=== PATIENT | female | born 1995 | race Caucasian/White ===

== ENCOUNTER 2023-05-07 08:06 | Day surgery (SDC) | payer OTHER ==
--- NOTE | 2023-05-04 15:25 | HP ---
PROCEDURE DATE: 05/07/2023 HISTORY OF PRESENT ILLNESS: 27 year-old with history of some nausea, vomiting, and diarrhea, worse with greasy food, and some right upper quadrant pains. US - No stones. HIDA - Ejection fraction 7%. PAST MEDICAL HISTORY: Hypertension. She had some stage III renal insufficiency. CURRENT MEDICATIONS: Lisinopril, ondansetron, esomeprazole, medroxyprogesterone, sertraline, vitamin D2, furosemide, albuterol HFA inhaler. ALLERGIES: BANANA CAUSES SOME THROAT PROBLEMS, LATEX, AND CATS. PAST SURGICAL HISTORY: Had kidney biopsy, had laser eye surgery in the past. FAMILY HISTORY: Hypertension, asthma, cancer, alcohol abuse, autism. SOCIAL HISTORY: No smoking or alcohol abuse. REVIEW OF SYSTEMS: 12 systems reviewed pertinent for as noted above multiple medical problems. Otherwise, no chest pain or palpitations. Other systems negative or noncontributory other than above and per preadmission questionnaire. PHYSICAL EXAMINATION: VITALS: Height 5' 9", BMI 29. GENERAL: No acute distress. HEENT: Sclerae nonicteric. NECK: No JVD. CHEST: Equal excursion. Nonlabored breathing. CVS: Regular rate and rhythm. ABDOMEN: Soft. Mild tenderness in right upper quadrant. EXTREMITIES: No cyanosis or edema. NEURO: Alert and oriented, moving extremities symmetrically. PSYCH: Appropriate mood and affect. SKIN: Dry. IMPRESSION: 1. EXACERBATION OF CHRONIC CHOLECYSTITIS, SYMPTOMATIC BILIARY DYSKINESIA. FEEL THE PATIENT WILL BENEFIT FROM CHOLECYSTECTOMY. Shown the risk sheet. Explained the risks in detail, but not limited to, bleeding; infection; risk of trocar injury or hernia; risk of bowel, bladder, or blood vessel injury; risk of bile leak, bile duct injury, or retained stone or sludge possibly requiring further procedures either open or endoscopic retrograde cholangiopancreatography; general risk of anesthesia, deep vein thrombosis, pulmonary embolism, or pneumonia; perioperative risks of aches, pains, bloating, constipation and/or loose stools possibly chronic in nature; possibility of no improvement in her pre-op symptoms possibly requiring further work-up or studies, endoscopies or other studies or referrals. Will proceed with laparoscopic cholecystectomy, possible open as an outpatient. Otherwise, continue medications for renal insufficiency, hypertension, and vitamin D deficiency.
[~2023-05-07 08:06] MED LIST: Lactated Ringers 1,000 ML IV ONE; Sensorcaine 0.25% 10 ML ONE
[2023-05-07] MEDS: Lactated Ringers 1,000 ML IV SCH (08:19)
[2023-05-07] MEDS: MEFOXIN 2 GM PREMIX** 2 GM/50 ML ML IV SCH (08:19)
[2023-05-07 08:27] LABS: HCG URINE TEST NEGATIVE (NEGATIVE)
[2023-05-07 08:52] VITALS: O2SAT 95
[2023-05-07] MEDS ORDERED: Versed 2 MG/2 ML Injection ONE (10:50)
[2023-05-07] MEDS ORDERED: TORAdol 30 mg Injection ONE ×2 (10:51→12:37)
[2023-05-07] MEDS ORDERED: Xylocaine-Mpf 2% 5 Ml Vial ONE (10:51)
[2023-05-07] MEDS ORDERED: Zofran 4 MG/2 ML VIAL ONE ×2 (10:51→12:42)
[2023-05-07] MEDS ORDERED: DEXMEDETOMIDINE 80 MCG/20ML-NS IV ONE (10:51)
[2023-05-07] MEDS ORDERED: Zemuron 100 MG/10 ML ONE (10:51)
[2023-05-07] MEDS ORDERED: Decadron 4 MG INJ ONE ×2 (10:51→11:19)
[2023-05-07] MEDS ORDERED: Quelicin Fliptop 200 MG/10 ML ONE (10:51)
[2023-05-07] MEDS ORDERED: DIPRIVAN 200 MG/20 ML IV ONE (10:51)
[2023-05-07] MEDS ORDERED: BRIDION 200MG/2ML IV ONE ×2 (10:51→11:50)
[2023-05-07] MEDS ORDERED: SUBLIMAZE 100 MCG/2 ML ONE ×2 (10:52→12:24)
[2023-05-07] MEDS ORDERED: OFIRMEV 100 ML IV ONE (10:58)
[2023-05-07] MEDS ORDERED: Pre-Attached Lta Kit TP ONE (10:58)
[2023-05-07] MEDS ORDERED: Reglan 10 MG/2 ML ONE (11:05)
[2023-05-07] MEDS ORDERED: NORCO 5/325 MG ONE (13:17)
[2023-05-07 13:18] VITALS: RESP 16
[2023-05-07] MEDS: NORCO 5/325 MG PO PRN (13:20)
[2023-05-07] MEDS ORDERED: MORPHINE SULFATE 4 MG INJ IV PRN (13:49)
[2023-05-07] MEDS ORDERED: ZOFRAN ODT 4 MG PO PRN (13:50)
[2023-05-07 13:51] VITALS: BP 138/95; PULSE 87; TEMP 97.6
--- NOTE | 2023-05-08 10:35 | OP ---
SURGERY DATE/TIME: 05/07/2023 1128 PREOPERATIVE DIAGNOSIS: Acute exacerbation of chronic cholecystitis, symptomatic biliary dyskinesia. POSTOPERATIVE DIAGNOSIS: Acute exacerbation of chronic cholecystitis, symptomatic biliary dyskinesia. PROCEDURE: Laparoscopic cholecystectomy. SURGEON: Dr. Nael Dalal M.D. ANESTHESIA: General. ESTIMATED BLOOD LOSS: Minimal. INDICATIONS: As noted above. Risks and benefits explained in detail but not limited to and consent obtained. DESCRIPTION OF PROCEDURE AND FINDINGS: The patient was taken to the operating room. General anesthesia induced. Abdomen prepped and draped in usual sterile fashion. After official time out and no disagreement with planned procedure, a transverse incision made in the supraumbilical area. Fascia grasped, pulled upward. Veress needle inserted and tested with saline. Pneumoperitoneum accomplished insufflating opening pressure of 0-15. An 11 mm bladeless port and camera were inserted without difficulty followed by two - 5 mm right upper quadrant ports and 5 mm epigastric port. The gallbladder is grasped retracted over the edge of the liver. It had some chronic inflammation. Dissected posterior, lateral to anterior fashion slowly and carefully the cystic duct and infundibular area slowly and carefully well skeletonized until the critical view was obtained both anteriorly and posteriorly. Once this is accomplished, the cystic duct and cystic artery were clipped x3 and divided in the usual fashion. The gallbladder is carefully dissected free from its dense attachments to the liver bed clipping additional oozing side branches off of the cystic vein, cystic artery as necessary directly on the gallbladder wall. Just prior to releasing from final attachments to the anterior edge of the liver, the liver bed re-inspected. Clips noted in place in the cystic duct and cystic artery stumps. No signs of any active bleeding or bile leakage. It was felt there is no benefit of drain placement. The gallbladder was released from its final attachments to anterior edge of the liver pulled up and out the supraumbilical port sites and passed off. The fascial defect was then closed with puncture closure device with #1 Vicryl. Liver bed re-inspected. Copious amount of irrigation accomplished lateral to the liver. Clips in place in cystic duct and cystic artery stumps. No signs of any active bleeding or bile leakage. It was felt there was no benefit in drain placement. Pneumoperitoneum decompressed after closing the 10/11 sites with puncture closure device with #1 Vicryl. The wound is irrigated out. Skin incision closed with 4-0 Vicryl. Steri-Strips and sterile dressing applied. The patient tolerated the procedure well. There were no immediate complications. 0.25% Marcaine local injected along the skin incision and fascial defects at the beginning of the procedure. There were no immediate complications. Findings discussed with the family out in the waiting area.
== END 2023-05-07 14:20 | disposition home or self-care (01) ==
LOC: SDC 08:06
PROVIDERS: ATTEND Surgery
DX: K81.1 Chronic cholecystitis (principal); K82.8 Other specified diseases of gallbladder
CPT/HCPCS: 81025; J0330; J0694; J1100; J1885; J2250; J2405; J2704; J3010; A9270-GY

== ENCOUNTER 2025-02-11 18:34 | Emergency (ER) | payer OTHER ==
[2025-02-11 19:52] VITALS: TEMP 97.5; O2SAT 99
--- NOTE | 2025-02-11 20:07 | ERPHSYRPT ---
- History of Present Illness Time Seen by Provider: 02/11/25 20:02 Source: patient Exam Limitations: no limitations Patient Subjective Stated Complaint: pt states that she woke up with cramping and burning with urination this morning Triage Nursing Assessment: pt ambulated into the er; pt is axo x4; c/o urinary burning; pt states 6/10 pain with urination; pt states cramping to pelvic region; active bowel sounds in all quads; pt states she is due for her depo shot and cramping could be due to that; skin PDW; no respiratory distress present; hypertensive Physician History: Patient is a 29-year-old female history of recurrent urinary tract infections hypertension asthma anxiety depression presents to our ED for evaluation of intermittent pelvic cramping and dysuria. Symptoms started today. No trauma no fever. No nausea vomiting or diaphoresis. Symptoms are mild to moderate in intensity. No specific worsening or improving factors. Patient rates her pain 6 out of 10. Patient otherwise feels well. She voices no other complaints or concerns at this time. Portions of this note were created with voice recognition technology. There may be grammatical, spelling, punctuation or sound alike errors Timing/Duration: today Severity: moderate Modifying Factors: Improves With: nothing Associated Symptoms: denies symptoms Allergies/Adverse Reactions: banana Allergy (Verified 02/11/25 19:37) coconut Allergy (Verified 02/11/25 19:37) kiwi Allergy (Verified 02/11/25 19:37) sesame seed Allergy (Verified 02/11/25 19:37) shellfish derived Allergy (Verified 02/11/25 19:37) strawberry Allergy (Verified 02/11/25 19:37) tree nut Allergy (Verified 02/11/25 19:37) Home Medications: Ergocalciferol (Vitamin D2) [Vitamin D2] 1 tab PO DAILY 04/16/23 [History] Esomeprazole Magnesium 40 mg PO DAILY 04/16/23 [History] Furosemide 20 mg [Lasix 20 mg] 20 mg PO DAILY 04/16/23 [History] Lisinopril 5 mg [Zestril 5 MG] 10 mg PO DAILY 04/16/23 [History] Sertraline HCl 50 mg [Zoloft 50 mg Tablet] 100 mg PO DAILY 04/16/23 [History] Prazosin HCl 1 mg PO HS 10/01/24 [History] hydroCHLOROthiazide [Hydrochlorothiazide] 12.5 mg PO DAILY 10/01/24 [History] Dapagliflozin Propanediol [Farxiga] 5 mg PO DAILY 02/11/25 [History] Fluticasone/Umeclidin/Vilanter [Trelegy Ellipta 200-62.5-25] 1 puff IH DAILY 02/11/25 [History] Magnesium Oxide 400 mg PO BID 02/11/25 [History] Medroxyprogesterone Acetate 150 mg IM Q90D 02/11/25 [History] Sodium Bicarbonate 650 mg PO BID 02/11/25 [History] Hx Tetanus, Diphtheria Vaccination/Date Given: Yes Hx Influenza Vaccination/Date Given: Yes Hx Pneumococcal Vaccination/Date Given: No Travel Risk - International Travel Have you traveled outside of the country in past 3 weeks: No - Emerging Infectious Disease Are you exhibiting symptoms associated with any current EIDs: No Symptoms: Abdominal Pain, Diarrhea - Review of Systems All Other Systems: Reviewed and Negative - Past Medical History Pertinent Past Medical History: Yes Neurological History: No Pertinent History ENT History: Other Cardiac History: Hypertension Respiratory History: Asthma Endocrine Medical History: No Pertinent History Musculoskeletal History: No Pertinent History GI Medical History: Gallbladder Disease History: No Pertinent History Psycho-Social History: Anxiety, Depression Female Reproductive Disorders: No Pertinent History Other Medical History: chronic kidney disease stage 3, retinal degeneration - Past Surgical History Past Surgical History: Yes Neuro Surgical History: No Pertinent History Cardiac: No Pertinent History Respiratory: No Pertinent History Gastrointestinal: No Pertinent History Genitourinary: No Pertinent History Musculoskeletal: No Pertinent History Female Surgical History: No Pertinent History Other Surgical History: laser eye surgery, kidney biopsy - Female History Hx Now: No - Social History Smoking Status: Never smoker Exposure to second hand smoke: Yes Drug Use: none - Social Determinants of Health Will the patient participate in the screening: Declined to provide - Nursing Vital Signs Nursing Vital Signs: Initial Vital Signs Temperature 97.5 F 02/11/25 19:34 Pulse Rate 94 H 02/11/25 19:34 Respiratory Rate 20 02/11/25 19:34 Blood Pressure 158/103 02/11/25 19:34 O2 Sat by Pulse Oximetry 99 02/11/25 19:34 Pain Scale Pain Intensity 5 - Physical Exam General Appearance: no apparent distress, alert Eye Exam: PERRL/EOMI, eyes nml inspection Ears, Nose, Throat Exam: normal ENT inspection Neck Exam: normal inspection, full range of motion Respiratory Exam: normal breath sounds, lungs clear, No respiratory distress Cardiovascular Exam: regular rate/rhythm, normal heart sounds, normal peripheral pulses Gastrointestinal/Abdomen Exam: soft, normal bowel sounds, No tenderness, No mass Back Exam: normal inspection, normal range of motion, No CVA tenderness, No vertebral tenderness Extremity Exam: normal inspection, normal range of motion, pelvis stable Neurologic Exam: alert, oriented x 3, cooperative, normal mood/affect, sensation nml, No motor deficits Skin Exam: normal color, warm, dry, No rash Lymphatic Exam: No adenopathy SpO2 Interpretation: normal SpO2: 99 O2 Delivery: Room Air - Course Nursing assessment & vital signs reviewed: Yes Ordered Tests: Active Orders 24 hr Category Date Time Status CULTURE,URINE Stat Lab 02/11/25 Ordered CULTURE,URINE Stat Lab 02/11/25 19:51 Received HCG QUALITATIVE, URINE Stat Lab 02/11/25 19:51 Completed UA W/RFX UR CULTURE Stat Lab 02/11/25 19:51 Completed Medication Summary Discontinued Medications Generic Name Dose Route Start Last Admin Trade Name Frankyq PRN Reason Stop Dose Admin Acetaminophen 975 mg 02/11/25 20:05 02/11/25 20:12 Acetaminophen 325 Mg Tablet PO 02/11/25 20:06 975 mg STAT ONE Administration Acetaminophen Confirm 02/11/25 20:11 Acetaminophen 325 Mg Tablet Administered 02/11/25 20:12 Dose 975 mg .ROUTE .STK-MED ONE Nitrofurantoin Macrocrystals 100 mg 02/11/25 20:34 Nitrofurantoin Macro 100 Mg Capsule PO 02/11/25 20:35 STAT ONE Lab/Rad Data: Laboratory Results 02/11/25 02/11/25 Range/Units 19:51 19:51 Urine Color Yellow (Yellow) Urine Appearance Clear (Clear) Urine pH 5.5 (4.6-8.0) Ur Specific Broadbent 1.010 (1.005-1.030) Urine Protein 100 A (Negative) Urine Glucose (UA) Negative (Negative) mg/dL Urine Ketones Negative (Negative) Urine Blood Negative (Negative) Urine Nitrite Negative (Negative) Urine Bilirubin Negative (Negative) Urine Urobilinogen 0.2 (0.2) mg/dL Ur Leukocyte Esterase Trace A (Negative) U Hyaline Cast (Auto) 3-5 A (0-2) /LPF Urine Microscopic RBC 0-2 (0-5) /HPF Urine Microscopic WBC 3-5 (0-5) /HPF Ur Epithelial Cells None Seen (None Seen) /HPF Urine Bacteria None Seen (None Seen) /HPF Urine Culture Reflexed YES (NO) Urine HCG, Qual NEGATIVE (NEGATIVE) - Progress Progress: improved Progress Note: Patient is a 29-year-old female history of recurrent urinary tract infections hypertension asthma anxiety depression presents to our ED for evaluation of intermittent pelvic cramping and dysuria. Symptoms started today. No trauma no fever. No nausea vomiting or diaphoresis. Physical exam nonremarkable. UA significant for proteinuria trace leukocyte esterase 3-5 WBC. The UA did not reflex to culture. I ordered a urine culture in light of patient's history and current complaint. Patient currently asymptomatic. We administered a dose of M acrobid. A prescription for the same forwarded to patient's pharmacy. Patient has a follow-up appointment with her family doctor scheduled for tomorrow. Patient resting comfortably. No complaints. Significant other at bedside. Patient states she is ready for discharge. Portions of this note were created with voice recognition technology. There may be grammatical, spelling, punctuation or sound alike errors Differential diagnosis includes lower urinary tract infection, vaginitis, dermatologic causes such as HSV History obtained from patient. Complexity of problems addressed is moderate acute complicated. No critical care time. Complex of data reviewed and analyzed is moderate. Test ordered test reviewed results analyzed and correlated clinically with history and physical exam. Risk of complication and or risk of morbidity/mortality of patient management is moderate. A prescription for Macrobid forwarded to patient's pharmacy. Vital stable. Time spent to discharge patient is approximately 10 minutes. Plan of care established for shared decision making. No social determinants of health present to impede follow-up. Portions of this note were created with voice recognition technology. There may be grammatical, spelling, punctuation or sound alike errors 02/11/25 20:38 Counseled pt/family regarding: lab results, diagnosis, need for follow-up - Departure Departure Disposition: Home Clinical Impression: Dysuria, UTI (urinary tract infection) Condition: Stable Critical Care Time: No Referrals: OLIMPIA DELUCA [Primary Care Provider, INTERNAL [facility]IC[facility]] - Follow up/PCP as directed Additional Instructions: Discharge/Care Plan JACOBO GIBSON was seen on 02/11/25 in the Emergency Room. The patient was counseled regarding Diagnosis,Lab results, Imaging studies, need for follow up and when to return to the Emergency Room. Prescriptions given: Discharge Note I have spoken with the patient and/or caregivers. I have explained the patient's condition, diagnosis and treatment plan based on the information available to me at this time. I have answered the patient's and/or caregiver's questions and addressed any concerns. The patient and/or caregivers have as good understanding of the patient's diagnosis, condition and treatment plan as can be expected at this point. The vital signs have been stable. The patient's condition is stable and appropriate for discharge from the emergency department. The patient will pursue further outpatient evaluation with the primary care physician or other designated or consulting physician as outlined in the discharge instructions. The patient and/or caregivers are agreeable to this plan of care and follow-up instructions have been explained in detail. The patient and/or caregivers have received these instruction. The patient/and or caregivers are aware that any significant change in condition or worsening of symptoms should prompt an immediate return to this or the closest emergency department or call 911. Prescriptions: Nitrofurantoin Macro 100 mg [Macrobid 100MG Capsule] 100 mg PO BID 7 Days #14 cap
[2025-02-11] MEDS ORDERED: TYLENOL 325 MG ONE (20:11)
[2025-02-11] MEDS: TYLENOL 325 MG PO ONE (20:12)
[2025-02-11 20:17] LABS: HCG URINE TEST NEGATIVE (NEGATIVE)
[2025-02-11 20:21] LABS: Glucose, Urine Negative (Negative); Protein,Urine Dip 100 (Negative); RBC 0-2 /HPF (0-5)
[2025-02-11] MEDS: Macrobid 100MG Capsule PO ONE (20:36)
[2025-02-11] MEDS ORDERED: Macrobid 100MG Capsule ONE (20:36)
[2025-02-11 20:37] VITALS: BP 116/84; PULSE 89; RESP 15
== END 2025-02-11 20:40 | disposition home or self-care (01) ==
LOC: ED 18:34
DX: N39.0 Urinary tract infection, site not specified (principal); R30.0 Dysuria; R10.9 Unspecified abdominal pain; I12.9 Hypertensive chronic kidney disease with stage 1 through stage 4 chronic kidney disease, or unspecified chronic kidney disease; N18.30 Chronic kidney disease, stage 3 unspecified; Z79.84 Long term (current) use of oral hypoglycemic drugs; Z79.899 Other long term (current) drug therapy